=== PATIENT | male | born 1975 | race Caucasian/White ===

== ENCOUNTER 2019-10-09 06:11 | Emergency (ER) | payer OTHER, BC ==
--- NOTE | 2019-10-09 07:16 | EDM.PDOC ---
ED HPI GENERAL MEDICAL PROBLEM - General Chief Complaint: Lower Extremity Injury/Pain Stated Complaint: LT ANKLE PAIN Time Seen by Provider: 10/09/19 06:36 - History of Present Illness INITIAL COMMENTS - FREE TEXT/NARRATIVE: 44-year-old gentleman presents the emergency room with left ankle pain. This really started to get bad around the . Patient had a significant ankle surgery back in April 2019 secondary to a bimalleolar fracture. He was released to work around 21 September and had an episode at work where he was down on his knees and got his foot into an awkward position however he recovered from this without too much difficulty it sounds like. The patient on the walked around quite a bit and then developed some significant discomfort posterior aspect of the distal lower. This continues to bother him. He also noticed a small scab over the incision on the medial aspect. The patient has follow-up with bone and joint this coming Thursday. He noticed heat may help it, he tried using heating pad to the area couple times and it seemed to help. Left Ankle Pain Score (Numeric/FACES): 5 - Related Data Allergies Allergy/AdvReac Type Severity Reaction Status Date / Time No Known Allergies Allergy Verified 10/09/19 06:23 Home Meds: Home Meds Naproxen [Naprosyn] 500 mg PO Q12HR #30 tab 10/09/19 [Rx] Past Medical History - Past Health History Medical/Surgical History: Denies Medical/Surgical History Musculoskeletal History: Reports: Fracture Other Musculoskeletal History: current left ankle fracture - Infectious Disease History Infectious Disease History: Reports: MRSA - Past Surgical History Musculoskeletal Surgical History: Reports: ORIF Social & Family History - Tobacco Use Smoking Status *Q: Never Smoker - Caffeine Use Caffeine Use: Reports: Energy Drinks - Recreational Drug Use Recreational Drug Use: No - Living Situation & Occupation Occupation: Employed Review of Systems - Review of Systems Review Of Systems: See Below Constitutional: Reports: No Symptoms Respiratory: Reports: No Symptoms Cardiovascular: Reports: No Symptoms GI/Abdominal: Reports: No Symptoms ED EXAM, GENERAL - Physical Exam Exam: See Below Exam Limited By: No Limitations General Appearance: Alert, No Apparent Distress Respiratory/Chest: No Respiratory Distress, Lungs Clear, Normal Breath Sounds Cardiovascular: Regular Rate, Rhythm, No Edema, No Murmur Extremities: Other (Patient was left lower extremity shows well-healed incisions on the medial lateral aspect of the ankle and the medial aspect there is a small scab this area moves freely over the hardware underneath it and it does not seem to be adherent and it is very superficial. There is no surrounding erythema warmth or discharge from the area. Lateral aspect looks good. Palpation of the area shows pain anterior to the Achilles tendon but does not seem to involve the Achilles tendon the patient can push vigorously in a plantar flexing direction with resistance to the forefoot. Palpation over the bony structures is not appreciably tender neurovascular status of the foot appears to be intact. He does have pain that extends into his heel over the area the medial calcaneal nerve however percussing over this does not cause any obvious paresthesias) Course - Vital Signs Last Recorded V/S: Last Vital Signs Temp 36.6 C 10/09/19 06:20 Pulse 75 10/09/19 06:20 Resp 16 10/09/19 06:20 BP 130/89 10/09/19 06:20 Pulse Ox 95 10/09/19 06:20 - Re-Assessments/Exams Free Text/Narrative Re-Assessment/Exam: 10/09/19 07:10 Examination of the ankle shows good bony alignment the fractures appear to have healed the hardware appears intact. His exam is more suggestive of pain posterior to the ankle however his Achilles function appears to be entirely normal. It sounds like he was very active on the and his pain started the night of the . And I am wondering if a lot of this could be an overuse situation especially after recently returning to work and the immobilization that occurred with the postop rehab period. The patient's been using Aleve 3 twice daily of cautioned against this and will put him on Naprosyn 500 twice daily. He can supplement that this with Tylenol. He has his crutches at home as well as his postop walking boot but immobilizing his ankle at this point I think should be a last resort. He has follow-up with bone and joint this coming Thursday in [place]. Departure - Departure Time of Disposition: :13 Disposition: Admitted As Inpatient 64 Clinical Impression: Ankle pain, left - Discharge Information Prescriptions: Naproxen [Naprosyn] 500 mg PO Q12HR #30 tab Instructions: Ankle Pain Referrals: PCP,None [Primary Care Provider] - Forms: ED Department Discharge Additional Instructions: Return to the emergency room with any questions problems or worsening symptoms. Follow-up with bone and joint this Thursday as previously scheduled. You have been started on Naprosyn take 1 twice daily with your morning and evening meals. You may also use Tylenol 1000 mg 4 times a day to help with the discomfort. Use your crutches only if needed. Sepsis Event Note - Evaluation Sepsis Screening Result: No Definite Risk - Focused Exam Vital Signs: Vital Signs Temp Pulse Resp BP Pulse Ox 10/09/19 06:20 36.6 C 75 16 130/89 95 Date Exam was Performed: 10/09/19 Time Exam was Performed: 07:35
--- NOTE | 2019-10-09 07:28 | CR ---
Left ankle: Four views of the left ankle were obtained. Comparison: Previous operative exam of 05/02/19 and baseline study of 04/19/19. Plate and screws are noted within the distal fibula. Two screws are noted within the medial malleolus. Findings affect previous healed fractures. Slight osteopenia is seen likely on a disuse basis. No acute fracture or other bony abnormality is seen. Soft tissue swelling is present. Impression: 1. Old healed fractures with orthopedic hardware in place. 2. Slight osteopenia likely on disuse basis. 3. Soft tissue swelling. 4. No acute bony abnormality is appreciated. Diagnostic code #2 This report was dictated in [place] Standard Time
== END 2019-10-09 07:25 | disposition home or self-care (01) ==
LOC: JD.ED 06:11
DX: M25.572 Pain in left ankle and joints of left foot (principal)
CPT/HCPCS: 73610-26-LT; 73610-LT; 99283; 99284-25